=== PATIENT | female | born 1955 | race Caucasian/White ===

== ENCOUNTER → 2016-07-22 | Outpatient (CLI) | payer MEDICARE, MEDICAID ==
[~2016-07-22] MED LIST: ADVAIR 10028 PUFF/IN IN; ALBUTEROL2.5 MG/NEB IN; ASPIR-LOW81 MG PO; BAYER ASPIRIN C81 MG; BENEDRYL OR; CELEBREX 200MG200 MG PO; CHEWABLE ASPIRI81 MG PO; CIPROFLOXACIN500 MG PO; COL-RITE100 MG PO; DICLOFENAC 50MG50 MG PO; DIPHENHYDRAMINE25 MG PO; FLUTICASONE 50M16 GM; GABAPENTIN300 MG OR; HYDROCHLOROTH12.5 M1 PO; HYDROCODONE/ACE1 TA5 PO; HYDROXYZINE 25M25 MG PO; LEVAQUIN500 MG PO; LISINOPRIL40 MG PO; MEDROL 4MG. DOSE4 MG PO; METHOCARBAMOL750 MG PO; NAPROSYN 250MG250 MG PO; NEBULIZER MED; NEXIUM40 MG PO; NICODERM C21 MG/241 TD; OXYCODONE HYDRO10 M2 PO; PREDNISONE 10MG10 MG PO; PREDNISONE 20MG20 MG PO; PROAIR HFA0.09 MG/AC IH; RANITIDINE HCL150 MG PO; RHINOCORT0.032 MG/1 NS; ROBAXIN-750750 MG PO; SIMVASTATIN20 MG PO; SIMVASTATIN40 MG PO; SINGULAIR10 MG PO; SULFAMETHOXAZOL1 TA6 PO; SUMATRIPTAN SUC25 MG PO; TIZANIDINE HCL 44 MG NG; TRAMADOL 50MG T50 MG PO; TRAZODONE 50MG50 MG PO; TYLENOL W/CODEI1 TA2 PO; XARELTO20 MG PO; ZITHROMAX Z PA250 MG PO; ZOFRAN4 MG PO; ZOLOFT100 MG PO
[2016-07-22 12:27] LABS: HEMOGLOBIN 14.3 g/dL (12.2-16.2); LYMPH # 1.7 K/mm3 (0.7-4.5); LYMPH % 27.8 % (10-50.0)
[2016-07-22 13:42] LABS: BUN 11 mg/dL (7-18)
[2016-07-22 13:46] LABS: GFR (ESTIMATED) 102 ML/MIN (59-)
== END ==
LOC: LAB 12:15
PROVIDERS: Internal Medicine Adolescent Medicine
DX: M15.0 Primary generalized (osteo)arthritis (principal); Z86.711 Personal history of pulmonary embolism; Z79.899 Other long term (current) drug therapy; M85.871 Other specified disorders of bone density and structure, right ankle and foot; M85.872 Other specified disorders of bone density and structure, left ankle and foot

== ENCOUNTER 2017-02-27 14:54 | Inpatient (IN) | payer MEDICARE, MEDICAID ==
[~2017-02-27] VITALS: Ht 162.6 cm; Wt 69.5 kg
[2017-02-27 15:00] VITALS: BP 130/84
--- NOTE | 2017-02-27 15:57 | CONSULT NOTE ---
Pharmacokinetic Consult Date of consult: 02/27/17 Time of consult: 1556 Referring provider: DR. PERDUE Reason for consult: GENTAMICIN DOSING Allergies: Coded Allergies: morphine (Severe, CHEST PAIN 09/17/15) Penicillins (I-HIVES 11/24/16) iodine (I-HIVES 11/24/16) Home Medications: Active Scripts Gabapentin (Gabapentin 300MG) 300 MG OR TID #90 CAPSULE Ref 3 Prov: 03/17/16 ONDANSETRON HCL (Zofran 4MG Tab) 4 MG PO Q6HP PRN NAUSEA AND VOMITING #12 TAB Prov: 07/10/16 Reported Medications Montelukast Sodium (Singulair) 10 MG PO QHS Albuterol Sulfate (Proair Hfa) 2 PUFFS IH QID Lisinopril (Lisinopril 40MG) 40 MG PO DAILY SERTRALINE HYDROCHLORIDE (Zoloft 100MG) 200 MG PO QHS Simvastatin (Simvastatin 40MG Tab) 40 MG PO QHS TRAZODONE HCL (Trazodone HCl) 50 MG PO QHS Esomeprazole Magnesium (Nexium 40MG Cap) 40 MG PO DAILY TIZANIDINE HCL (Tizanidine Hcl 4 Mg Tablet) 4 MG NG TIDP PRN MUSCLE SPASMS Ranitidine Hcl (Ranitidine 150MG) 150 MG PO BID SALMETEROL 50/FLUTICASONE 100 (Advair 100-50 Diskus) 1 PUFF IN BID DICLOFENAC SODIUM (Diclofenac 50MG) 75 MG PO BID FLUTICASONE PROPIONATE (Fluticasone 50MCG Nasal [place]) 2 SPRAY NA DAILY Tramadol Hcl (Tramadol 50MG) 50 MG PO TID #90 Height (feet): 5 Height (inches): 4.00 Medical History: CAD? No Angina: Yes CO: No Hypertension? Yes Hyperlipidemia? Yes CHF? No DVT? No PE? No COPD? Yes Asthma? Yes Anemia? No GERD? No Gastric ulcers? No GI Bleed? No Hernia? No Thyroid Problems? No Hypothyroidism? No CVA? Yes Seizures? No Diabetes? No Renal Insuffiency? No UTI? No Stones? No BPH? No GB Disease: Yes Nephritic Syndrome? No Asplenia? No Hepatitis? No Sickle Cell Disease? No Arthritis? No Migraines? Yes Cataracts? No Glaucoma? No MRSA? No HIV? No TB? No Anxiety? No Depression? Yes Cancer? No More? Yes Additional hx: 02 DEPENDENT Labs: Microbiology 02/27 UNK BLOOD: Anaerobic Blood Culture - ORD 02/27 UNK BLOOD: Aerobic Blood Culture - ORD 02/27 UNK BLOOD: Anaerobic Blood Culture - ORD 02/27 UNK BLOOD: Aerobic Blood Culture - ORD Plan: BASED ON PATIENT'S FACTORS, RECOMMEND STARTING WITH GENTAMICIN 240 MG Q48H AT THIS TIME. WILL OBTAIN 4 AND 12 HOUR LEVELS TO DETERMINE RENAL CLEARANCE OF GENTAMICIN. PHARMACY WILL FOLLOW DAILY AND ADJUST APPROPRIATE. NANCY CALDERA,PHARMD at [phone]
[2017-02-27] MEDS ORDERED: DOXYCYCLINE HY100 M3 PO (16:05)
[2017-02-27] MEDS ORDERED: PREDNISONE 20MG20 MG PO (16:10)
[2017-02-27] MEDS ORDERED: PANTOPRAZOLE SO40 MG PO (16:11)
[2017-02-27] MEDS ORDERED: SUMATRIPTAN SUC25 MG PO (16:15)
--- NOTE | 2017-02-27 16:15 | RADIOLOGY REPORT PS360 ---
CHEST(2 VIEWS-NOT PORTABLE) HISTORY: Cough and congestion R/O PNEUMONIA ORDERING PHYSICIAN: Levon Harp MD PATIENT AGE: 61 years COMPARISON: Ex 516 FINDINGS: The heart size is unremarkable. COPD with hyperinflation and attenuation of the peripheral pulmonary vessels. There is a chronic parenchymal opacity in the right upper lobe overlying the third rib probably due to an area of scarring. Patchy density is present in the right CP angle suggesting atelectasis or infiltrate with blunting of the right CP angle consistent with small right effusion. There is moderate lower thoracic scoliosis convex left. IMPRESSION: COPD with right basilar infiltrate with small right effusion with chronic change
[2017-02-27 16:22] VITALS: BP 136/94
--- NOTE | 2017-02-27 17:22 | HISTORY AND PHYSICAL REPORT ---
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 Slightly improved with oral antibiotics and prednisone therapy but this afternoon came back with ongoing shortness of air, congestion, no improvement over baseline and was admitted to hospital for inpatient antibiotics, pulmonary toilet and intravenous therapy. Past medical history: Family HX Diabetes Yes CAD Yes Hypertension Yes Hyperlipidemia Yes Cancer No TB No Immunization HX DT/Tetanus Unknown Flu Refused Pneumonia Received In Past General CAD? No Angina: Yes NC: No Hypertension? Yes Hyperlipidemia? Yes CHF? No DVT? No PE? No COPD? Yes Asthma? Yes Anemia? No GERD? No Gastric ulcers? No GI Bleed? No Hernia? No Thyroid Problems? No Hypothyroidism? No CVA? Yes Seizures? No Diabetes? No Renal Insuffiency? No UTI? No Stones? No BPH? No GB Disease: Yes Nephritic Syndrome? No Asplenia? No Hepatitis? No Sickle Cell Disease? No Arthritis? No Migraines? Yes Cataracts? No Glaucoma? No MRSA? No HIV? No TB? No Anxiety? No Depression? Yes Cancer? No More? Yes Additional hx: 02 DEPENDENT Past Surgical HX Previous Surgery?Y CHOLECYSTECTOMY FEET SURGERY CYSTS REMOVED L BREAST GALLSTONES NECK SURGERY KNOT ON NECK Current home meds: Active Scripts Gabapentin (Gabapentin 300MG) 300 MG OR TID #90 CAPSULE Ref 3 Prov: 03/17/16 Reported Medications DOXYCYCLINE HYCLATE (Doxycycline Hyclate) 100 MG PO BID Prednisone (Prednisone 20MG) 20 MG PO ONCE Pantoprazole Sodium (Pantoprazole 40MG) 40 MG PO DAILY Sumatriptan Succinate (Sumatriptan 25MG Tab) 100 MG PO PRN PRN MIGRAINE Montelukast Sodium (Singulair) 10 MG PO QHS Albuterol Sulfate (Proair Hfa) 2 PUFFS IH QID Lisinopril (Lisinopril 40MG) 40 MG PO DAILY SERTRALINE HYDROCHLORIDE (Zoloft 100MG) 200 MG PO QHS TRAZODONE HCL (Trazodone HCl) 50 MG PO QHS TIZANIDINE HCL (Tizanidine Hcl 4 Mg Tablet) 4 MG NG TIDP PRN MUSCLE SPASMS Ranitidine Hcl (Ranitidine 150MG) 150 MG PO BID SALMETEROL 50/FLUTICASONE 100 (Advair 100-50 Diskus) 1 PUFF IN BID FLUTICASONE PROPIONATE (Fluticasone 50MCG Nasal [place]) 2 SPRAY NA DAILY Tramadol Hcl (Tramadol 50MG) 50 MG PO TID #90 Social Hx: Smoking HX Packs/day 1 1/2 - 2 PACKS Alcohol Alcohol: No Hx of Drug Use Drug Use? No Patien't marital status is single Patient's support system is excellent Review of systems: Constitutional fever, malaise, weakness. Respiratory shortness of breath, SOB with excertion, SOB at rest, wheezing. No: stridor. Cardiovascular No no symptoms reported Gastrointestinal/Abdominal No diarrhea, No difficulty swallowing Genitourinary No: no symptoms reported. Musculoskeletal No: no symptoms reported. Neurological No: see HPI. Exam: Lab data for last 24 hours: Microbiology 02/27 1705 BLOOD: Anaerobic Blood Culture - RECD 02/27 1705 BLOOD: Aerobic Blood Culture - RECD 02/27 1705 BLOOD: Anaerobic Blood Culture - RECD 02/27 1705 BLOOD: Aerobic Blood Culture - RECD Admission vital signs: 1ST Vital Signs Result Date Time Pulse Ox 91 02/27 162 B/P 136/94 02/27 162 O2 Delivery OXYGEN 02/27 1622 Temp 97.8 02/27 1622 Pulse 108 02/27 162 Resp 22 02/27 1622 Additional information: Patient is short of breath at baseline. In her wheelchair. Lungs have crackles and rhonchi on both sides, worse in the right base. Left side clear. Abdomen is soft and nontender. 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 Plan: Problem List 1. COPD exacerbation 2. Lobar pneumonia Plan: Admit to hospital. History of Pseudomonas. Cover for this organism. Pulmonary toilet. Follow closely. at 1728
[2017-02-27 17:26] LABS: HEMOGLOBIN 13.4 g/dL (12.2-16.2); LYMPH # 0.8 K/mm3 (0.7-4.5); LYMPH % 7.2 % (10-50.0)
[2017-02-27 18:14] LABS: NEUTROPHILS 90 % (42-76)
[2017-02-27 20:06] VITALS: BP 118/82
[2017-02-27 20:13] VITALS: BP 118/82
[2017-02-28 03:42] VITALS: BP 138/93
[2017-02-28 08:00] VITALS: BP 169/95
--- NOTE | 2017-02-28 13:22 | PHARMACY CLINIC NOTE ---
Patient Demographics Patient Demographics Admission date: 02/27/17 Date: 02/28/17 Time: 1322 Allergies Coded Allergies: morphine (Severe, CHEST PAIN 09/17/15) Penicillins (I-HIVES 11/24/16) iodine (I-HIVES 11/24/16) HEIGHT- FT: 5 IN: 4.00 K.911 VTE General Information Labs: Laboratory Tests 02/27 1705 Hematology Hgb (12.2 - 16.2 g/dL) 13.4 Hct (37.0 - 47.0 %) 43.1 Plt Count (142 - 424 K/mm3) 533 H Disclaimer The following section includes nursing documentation that has been pulled in for pharmacy review. Patient's VTE score: 1 Patient's VTE Risk: VERY LOW RISK Clinical trial participant? No VTE prophylaxis NQF [id number] VTE prophylaxis ordered? Yes Type of prophylaxis/treatment: KACEY at 1322
--- NOTE | 2017-02-28 13:28 | ACUTE CARE PROGRESS NOTE (QUA) ---
Progress Notes Subjective Date 02/28/17 Time 1327 Note Patient slept well. States she still feels short of air with some coughing. Lungs still with rhonchi and crackles in the RIGHT lower lung field. Abdomen soft, left-sided fairly clear. Other exam unchanged from admission. Objective Findings Last VS-Temp:97.8 B/P:138/93 Pulse:78 Resp:20 SaO2:98 OXYGEN Last weight lbs:154 oz:2 K.911 Method:Bed Scales Assessment/Plan Problem List 1. COPD exacerbation 2. Lobar pneumonia Patient condition Improving Plan: continue current care, await culture results. Continue current antibiotic therapy This inpt stay is expected to cross 2 MNs from start of care Yes at 1321
--- NOTE | 2017-02-28 15:51 | CONSULT NOTE ---
Pharmacokinetic Consult Date of consult: 02/28/17 Time of consult: 8423 Referring provider: DR. PERDUE Reason for consult: GENTAMICIN LEVELS AND DOSE CHANGE Allergies: Coded Allergies: morphine (Severe, CHEST PAIN 09/17/15) Penicillins (I-HIVES 11/24/16) iodine (I-HIVES 11/24/16) Home Medications: Active Scripts Gabapentin (Gabapentin 300MG) 300 MG OR TID #90 CAPSULE Ref 3 Prov: 03/17/16 Reported Medications DOXYCYCLINE HYCLATE (Doxycycline Hyclate) 100 MG PO BID Prednisone (Prednisone 20MG) 20 MG PO ONCE Pantoprazole Sodium (Pantoprazole 40MG) 40 MG PO DAILY Sumatriptan Succinate (Sumatriptan 25MG Tab) 100 MG PO PRN PRN MIGRAINE Montelukast Sodium (Singulair) 10 MG PO QHS Albuterol Sulfate (Proair Hfa) 2 PUFFS IH QID Lisinopril (Lisinopril 40MG) 40 MG PO DAILY SERTRALINE HYDROCHLORIDE (Zoloft 100MG) 200 MG PO QHS TRAZODONE HCL (Trazodone HCl) 50 MG PO QHS TIZANIDINE HCL (Tizanidine Hcl 4 Mg Tablet) 4 MG NG TIDP PRN MUSCLE SPASMS Ranitidine Hcl (Ranitidine 150MG) 150 MG PO BID SALMETEROL 50/FLUTICASONE 100 (Advair 100-50 Diskus) 1 PUFF IN BID FLUTICASONE PROPIONATE (Fluticasone 50MCG Nasal [place]) 2 SPRAY NA DAILY Tramadol Hcl (Tramadol 50MG) 50 MG PO TID #90 Height (feet): 5 Height (inches): 4.00 Medical History: CAD? Yes Angina: Yes [place]: No Hypertension? Yes Hyperlipidemia? Yes CHF? No DVT? No PE? No COPD? Yes Asthma? Yes Anemia? No GERD? No Gastric ulcers? No GI Bleed? No Hernia? No Thyroid Problems? No Hypothyroidism? No CVA? Yes Seizures? No Diabetes? Yes Insulin Dependent: No Insulin Pump: No Home FSBS? No Renal Insuffiency? No UTI? No Stones? No BPH? No GB Disease: Yes Nephritic Syndrome? No Asplenia? No Hepatitis? No Sickle Cell Disease? No Arthritis? No Migraines? Yes Cataracts? No Glaucoma? No MRSA? No HIV? No TB? No Anxiety? No Depression? Yes Cancer? No More? Yes Additional hx: 02 DEPENDENT Labs: Laboratory Tests 02/28/17 0940: Random Gentamicin 2.2 L 02/28/17 0210: Random Gentamicin 5.6 02/27/17 170: Sodium 141, Potassium 3.1 L, Chloride 104, Carbon Dioxide 34 H, BUN 16, Creatinine 0.6, Estimated Creat Clear 111, Estimated GFR (MDRD) 102, Glucose 91, Calcium 9.2, Total Bilirubin 0.1 L, AST 12 L, ALT 15, Alkaline Phosphatase 80, Total Protein 7.3, Albumin 2.7 L, Globulin 4.6 H, Albumin/Globulin Ratio 0.6 L, WBC 11.3 H, RBC 4.69, Hgb 13.4, Hct 43.1, MCV 91.9, RDW 13.6, Plt Count 533 H, MPV 7.1 L, Gran % 87.9 H, Gran # 9.9 H, Total Counted 100, Lymphocytes % 7.2 L, Monocytes % 4.3, Eosinophils % 0.3, Basophils % 0.3, Neutrophils 90 H, Lymphocytes (Manual) 8 L, Lymphocytes # 0.8, Monocytes (Manual) 1 L, Monocytes # 0.5, Eosinophils # 0.0, Basophils # 0.0, Basophils # (Manual) 1, Platelet Estimate SLIGHT INCREASE, PUBS MCHC 31.1 L, MCH 28.6, Mycoplasma pneumon IgM NON-REACTIVE Microbiology 02/28 510 SPUTUM: Sputum Culture - COMP 02/28 510 SPUTUM: Gram Stain - COMP 02/27 2035 SPUTUM: Sputum Culture - COMP 02/27 2035 SPUTUM: Gram Stain - COMP 02/27 1705 BLOOD: Anaerobic Blood Culture - RECD 02/27 1705 BLOOD: Aerobic Blood Culture - RECD 02/27 1705 BLOOD: Anaerobic Blood Culture - RECD 02/27 1705 BLOOD: Aerobic Blood Culture - RECD Plan: BASED ON PATIENT'S GENTAMICIN LEVELS OF 5.6 MCG/ML AND 2.2 MCG/ML AT 5 AND 12 HOURS POST INFUSION, RESPECTIVELY, RECOMMEND CHANGING GENTAMICIN DOSE TO 280 MG Q24H STARTING TONIGHT AT 2100. PHARMACY WILL FOLLOW DAILY AND ADJUST APPROPRIATE. NANCY CALDERA, PHARMD at [phone]
[2017-02-28 16:00] VITALS: BP 135/87
[2017-02-28 20:01] VITALS: BP 111/70
--- OUTSIDE RECORDS SUMMARY | 2017-02-28 20:32 | External Medical Summary Rpt | CCD ---
Author Author , LUCILLE Organization LUCILLE Address Unknown Phone [email or web address] Care Team Providers Care Epic Cup[employer] Specialists Name Role Phone Jose Pavon III, MD, Jose Richey III, MD Purpose Continuity of Care Document - 12-11-2012 through 2016 Problems Code Diagnosis DOS Provider Status 305.1 305.1 12-11-2012 [place] TOBACCO USE [facility] DISORDER [facility] 401.9 401.9 12-11-2012 [place] HYPERTENSIO [facility] NOS Hospital 413.9 413.9 12-11-2012 [place] ANGINA [facility] PECTORIS [facility] NEC/NOS 493.90 493.90 12-11-2012 [place] ASTHMA, [facility] UNSPECIFIED Hospital [id number] 496 CHR 12-11-2012 [place] AIRWAY [facility] OBSTRUCT [facility] NEC 682.1 682.1 12-11-2012 [place] CELLULITIS [facility] OF NECK [facility] V14.0 V14.0 12-11-2012 [place] HX-PENICILL [facility] IN ALLERGY Hospital E55.9 VITAMIN D DEFICIENCY, UNSPECIFIED I10 ESSENTIAL (PRIMARY) HYPERTENSIO N J44.1 CHRONIC OBSTRUCTIVE PULMONARY DISEASE W (ACUTE) EXACERBATIO N J44.9 CHRONIC OBSTRUCTIVE PULMONARY DISEASE, UNSPECIFIED J80 ACUTE RESPIRATORY DISTRESS SYNDROME M54.5 LOW BACK PAIN R06.00 DYSPNEA, UNSPECIFIED S90.31XA CONTUSION OF RIGHT FOOT, INITIAL ENCOUNTER Z86.711 PERSONAL HISTORY OF PULMONARY EMBOLISM Allergies, Adverse Reactions, Alerts Type Drug Allergy Adverse Reaction to Substance Substance Reaction Severity Penicillin Unknown Unknown Morphine CHEST PAIN Severe Iodine Unknown Unknown Vital Signs 12-11-2012 14:33 Name Value Interpretat Reference Comment ion Range BP 84 mm[Hg] Diastolic BP Systolic 118 mm[Hg] Heart 62 /min Rate/Pulse O2% 94 % Respiratory 20 /min Rate 12-11-2012 14:00 Name Value Interpretat Reference Comment ion Range Heart 100 /min Rate/Pulse Respiratory 20 /min Rate 12-11-2012 13:54 Name Value Interpretat Reference Comment ion Range O2% 82 % Results Labs Lab Lab Date Result Refere Interp Status Commen Order Detail nces retati t Range on Drugs identified in Urine by Screen method (02-09-2017 13:45) Ampheta NEGATIV <1000 complet mine 017 E ed [Presen 13:45 ce] in Urine by Screen method 11-Hydr NEGATIV <50 complet oxy 017 E ed delta-9 13:45 tetrahy drocann abinol [Presen ce] in Unspeci fied specime n Encounters Encounter Start End Date Code Location Performer Type Date Emergency REYNALDO Richey (ER) 3 14:00 3 14:33 [facility] Jose Serrano
--- OUTSIDE RECORDS SUMMARY | 2017-02-28 20:32 | External Medical Summary Rpt | CCD ---
Demographics Preferred Language Belarusian Marital Status Unknown Scientology Affiliation Unknown Race Unknown Ethnic Group Unknown Author Author , LUCILLE ADKINS Address Unknown Phone Immunization No patient found.
--- OUTSIDE RECORDS SUMMARY | 2017-02-28 20:32 | External Medical Summary Rpt | CCD ---
Author Author , HEIDI ADKINS Address Unknown Phone [email or web address] Purpose Continuity of Care Document - through 2016
--- OUTSIDE RECORDS SUMMARY | 2017-02-28 20:32 | External Medical Summary Rpt ---
Author Author [employer], [employer] Organization [employer] Address Unknown Phone Unavailable Results Opiates and Oxycodone(GC/MS),U Observa Value Referen Units Interpr Notes Date tion ce etation Range Oxycodo Negativ Cutoff= No No Test Sep 25 ne/Oxym e 100 informa informa include 2017 orph tion in tion in s 1:45 PM source source Oxycodo data data ne and [employer] honePer formed at: [facility] [id number] [place], [place] [id number]Lab Directo r: Tony Trent MD, Phone: [phone] Opiates Negativ Cutoff= No No Opiate Sep 25 e 100 informa informa test 2017 tion in tion in include 1:45 PM source source s data data Codeine , Morphin e, Hydromo rphone, Hydroco done. Drugs identified in Urine by Screen method Observa Value Referen Units Interpr Notes Date tion ce etation Range Positive urine drug screen samples are stored for 7 days. Contact the Lab if confirmation of positives is needed. Ampheta NEGATIV <1000 ng/mL No No Sep 25 mine E informa informa 2017 [Presen tion in tion in 1:45 PM ce] in source source Urine data data by Screen method Barbitura <200 ng/mL No No Sep 25 marco informati informati 2017 1:45 [Mass/vol on in on in PM ume] in source source Urine by data data Screen method Benzodiaz 200 ng/mL ng/mL No No Sep 25 epines informati informati 2017 1:45 [Mass/vol on in on in PM ume] in source source Serum or data data Plasma by Screen method Cocaine <300 ng/g No No Sep 25 [Mass/vol informati informati 2017 1:45 ume] in on in on in PM Unspecifi source source ed data data specimen Methadone <300 ng/mL No No Sep 25 informati informati 2017 1:45 [Mass/vol on in on in PM ume] in source source Unspecifi data data ed specimen Opiates <300 ng/mL No No Sep 25 [Mass/vol informati informati 2017 1:45 ume] in on in on in PM Unspecifi source source ed data data specimen Phencycli <25 ng/mL No No Sep 25 dine informati informati 2017 1:45 [Mass/vol on in on in PM ume] in source source Unspecifi data data ed specimen 11-Hydr NEGATIV <50 ng/mL No No Sep 25 oxy E informa informa 2017 delta-9 tion in tion in 1:45 PM source source tetrahy data data drocann abinol [Presen ce] in Unspeci fied specime n
--- OUTSIDE RECORDS SUMMARY | 2017-02-28 20:32 | External Medical Summary Rpt | CCD ---
Author Author , LUCILLE Organization LUCILLE Address Unknown [employer] Care Team Providers Care Ordnance Engineering Technician Name Role Phone Jose Pavon III, MD, Jose Richey III, MD Purpose Continuity of Care Document - 12-11-2012 through 2016 Problems Code Diagnosis DOS Provider Status 305.1 305.1 12-11-2012 [place] TOBACCO USE [facility] DISORDER [facility] 401.9 401.9 12-11-2012 [place] HYPERTENSIO [facility] NOS Hospital 413.9 413.9 12-11-2012 [place] ANGINA [facility] PECTORIS [facility] NEC/NOS 493.90 493.90 12-11-2012 [place] ASTHMA, [facility] UNSPECIFIED Hospital 496 496 CHR 12-11-2012 [place] AIRWAY [facility] OBSTRUCT [facility] NEC 682.1 682.1 12-11-2012 [place] CELLULITIS [facility] OF NECK [facility] V14.0 V14.0 12-11-2012 [place] HX-PENICILL [facility] IN ALLERGY Hospital E55.9 VITAMIN D DEFICIENCY, [...] REYNALDO Richey (ER) 3 14:00 3 14:33 [facility] Jose Serrano
--- OUTSIDE RECORDS SUMMARY | 2017-02-28 20:32 | External Medical Summary Rpt | CCD ---
Author Author , HEIDI ADKINS Address Unknown Phone Purpose Continuity of Care Document - through 2016
--- OUTSIDE RECORDS SUMMARY | 2017-02-28 20:32 | External Medical Summary Rpt | CCD ---
Demographics Preferred Language Belarusian Marital Status Unknown Confucianist Affiliation Unknown Race Unknown Ethnic Group Unknown Author Author , LUCILLE ADKINS Address Unknown Phone Immunization No patient found.
--- OUTSIDE RECORDS SUMMARY | 2017-02-28 20:32 | External Medical Summary Rpt ---
[...] data ne and [employer] honePer formed at: [facility] [id number] [place], [place] [id number]Lab Directo r: Tony Trent MD, Phone: [phone] Opiates Negativ Cutoff= No No Opiate Sep [...]
[2017-02-28 21:08] VITALS: BP 111/70
[2017-03-01 04:08] VITALS: BP 110/70
--- NOTE | 2017-03-01 07:58 | ACUTE CARE PROGRESS NOTE (QUA) ---
Progress Notes Subjective Date 03/01/17 Time 0756 Note Overall patient feels somewhat better. Has defervesced. Continues to have some mild shortness of air but improved. Lungs continue to show crackles in the RIGHT lower lung field. Abdomen is soft, heart rate regular. Objective Findings Laboratory Tests 02/28/17 0940: Random Gentamicin 2.2 L Microbiology 03/01 38 SPUTUM: Sputum Culture - RES 03/01 38 SPUTUM: Gram Stain - RES 03/01 30 SPUTUM: Organism ID (Sequencing 2)(RAMON) - CAN Cancelled: REORDERED C/S Last VS-Temp:98.6 B/P:110/70 Pulse:84 Resp:18 SaO2:95 OXYGEN Last weight lbs:156 oz:5 K.902 Method:Bed Scales Assessment/Plan Problem List 1. COPD exacerbation 2. Lobar pneumonia 3. GRAM-NEGATIVE SEPSIS, UNSPECIFIED Patient condition Improving Plan: continue current care This inpt stay is expected to cross 2 MNs from start of care Yes Comments: Gram-negative rods in blood noted. Continue current antibiotics given empiric improvement. Await culture or PCR results. at 0757
[2017-03-01 08:30] VITALS: BP 131/80
[2017-03-01 16:27] VITALS: BP 124/90
[2017-03-01 20:10] VITALS: BP 120/67
[2017-03-01 21:05] LABS: GENTAMYCIN TROUGH 0.8 ug/ml (0-2.0)
[2017-03-01 21:15] VITALS: BP 120/67
[2017-03-02 03:59] VITALS: BP 102/61
--- NOTE | 2017-03-02 07:26 | ACUTE CARE PROGRESS NOTE (QUA) ---
Progress Notes Subjective Date 03/02/17 Time 0725 Note Patient feels somewhat better, has been breathing better. Good oral intake. Has not been out of bed. Lungs have rhonchi, good air movement, heart rate regular. Abdomen soft. Objective Findings Last VS-Temp:98.4 B/P:102/61 Pulse:75 Resp:16 SaO2:96 OXYGEN Last weight lbs:156 oz:5 K.902 Method:Bed Scales Assessment/Plan Problem List 1. COPD exacerbation 2. Lobar pneumonia 3. GRAM-NEGATIVE SEPSIS, UNSPECIFIED Patient condition Improving Plan: continue current care, await final resolution of blood culture issues and sputum culture. Hopefully discharge tomorrow. I am unsure of the veracity of the blood culture results with PCR findings but no actual culture growth. This inpt stay is expected to cross 2 MNs from start of care Yes at 0760
[2017-03-02 08:00] VITALS: BP 113/61
--- NOTE | 2017-03-02 08:11 | ACUTE CARE PROGRESS NOTE (QUA) ---
Progress Notes Subjective Date 03/02/17 Time 0810 Assessment/Plan Problem List 1. COPD exacerbation 2. Lobar pneumonia 3. GRAM-NEGATIVE SEPSIS, UNSPECIFIED This inpt stay is expected to cross 2 MNs from start of care Yes Antibiotic Stewardship (2) Current Culture Results Microbiology 03/01 38 SPUTUM: Sputum Culture - RES 03/01 38 SPUTUM: Gram Stain - RES 03/01 30 SPUTUM: Organism ID (Sequencing 2)(RAMON) - CAN Cancelled: REORDERED C/S 02/27 1705 BLOOD: Anaerobic Blood Culture - RES 02/27 1705 BLOOD: Aerobic Blood Culture - RES Infxn that will respond? Yes (PATIENT REMAINING AFEBRILE) Right drug,dose,and route? Yes More targeted antbx? No at 0811
--- NOTE | 2017-03-02 09:01 | CONSULT NOTE ---
Pharmacokinetic Consult Date of consult: 03/02/17 Time of consult: 857 Referring provider: DR. PERDUE Reason for consult: GENTAMICIN TROUGH LEVEL Allergies: Coded Allergies: morphine (Severe, CHEST PAIN 09/17/15) Penicillins (I-HIVES 11/24/16) iodine (I-HIVES 11/24/16) Home Medications: Active Scripts Gabapentin (Gabapentin 300MG) 300 MG OR TID #90 CAPSULE Ref 3 Prov: 03/17/16 Reported Medications DOXYCYCLINE HYCLATE (Doxycycline Hyclate) 100 MG PO BID Prednisone (Prednisone 20MG) 20 MG PO ONCE Pantoprazole Sodium (Pantoprazole 40MG) 40 MG PO DAILY Sumatriptan Succinate (Sumatriptan 25MG Tab) 100 MG PO PRN PRN MIGRAINE Montelukast Sodium (Singulair) 10 MG PO QHS Albuterol Sulfate (Proair Hfa) 2 PUFFS IH QID Lisinopril (Lisinopril 40MG) 40 MG PO DAILY SERTRALINE HYDROCHLORIDE (Zoloft 100MG) 200 MG PO QHS TRAZODONE HCL (Trazodone HCl) 50 MG PO QHS TIZANIDINE HCL (Tizanidine Hcl 4 Mg Tablet) 4 MG NG TIDP PRN MUSCLE SPASMS Ranitidine Hcl (Ranitidine 150MG) 150 MG PO BID SALMETEROL 50/FLUTICASONE 100 (Advair 100-50 Diskus) 1 PUFF IN BID FLUTICASONE PROPIONATE (Fluticasone 50MCG Nasal [place]) 2 SPRAY NA DAILY Tramadol Hcl (Tramadol 50MG) 50 MG PO TID #90 Height (feet): 5 Height (inches): 4.00 Medical History: CAD? Yes Angina: Yes [place]: No Hypertension? Yes Hyperlipidemia? Yes CHF? No DVT? No PE? No COPD? Yes Asthma? Yes Anemia? No GERD? No Gastric ulcers? No GI Bleed? No Hernia? No Thyroid Problems? No Hypothyroidism? No CVA? Yes Seizures? No Diabetes? Yes Insulin Dependent: No Insulin Pump: No Home FSBS? No Renal Insuffiency? No UTI? No Stones? No BPH? No GB Disease: Yes Nephritic Syndrome? No Asplenia? No Hepatitis? No Sickle Cell Disease? No Arthritis? No Migraines? Yes Cataracts? No Glaucoma? No MRSA? No HIV? No TB? No Anxiety? No Depression? Yes Cancer? No More? Yes Additional hx: 02 DEPENDENT Labs: Laboratory Tests 03/01/17 2030: Creatinine 0.7, Estimated Creat Clear 97, Estimated GFR (MDRD) 86, Gentamicin Trough 0.8 Problem List: 1. GRAM-NEGATIVE SEPSIS, UNSPECIFIED Plan: BASED ON GENTAMICIN TROUGH LEVEL LAST NIGHT, RECOMMEND CONTINUING GENTAMICIN 280 MG IV Q24H. PHARMACY WILL CONTINUE TO MONITOR DAILY AND ADJUST APPROPRIATE. at 0901
[2017-03-02 10:22] VITALS: BP 113/61
[2017-03-02 16:00] VITALS: BP 114/56
[2017-03-02 19:50] VITALS: BP 116/66
[2017-03-03 00:20] VITALS: BP 120/68
[2017-03-03 04:15] VITALS: BP 126/67
[2017-03-03] MEDS ORDERED: OMNICEF 300 MG300 MG PO (07:30)
[2017-03-03] MEDS ORDERED: ZITHROMAX Z-PA250 M2 PO (07:30)
--- NOTE | 2017-03-03 07:34 | DISCHARGE SUMMARY STANDARD ---
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 Slightly improved with oral antibiotics and prednisone therapy but this afternoon came back with ongoing shortness of air, congestion, no improvement over baseline and was admitted to hospital for inpatient antibiotics, pulmonary toilet and intravenous therapy. Hospital Course Hospital Course: Patient was admitted, found to have RIGHT lower lobe pneumonia with a very mild pleural effusion. She responded very nicely to antibiotics. Her white count was normal. She defervesced very quickly and began to normalize vis--vis respiratory status. Interestingly although sputum cultures were nondiagnostic and blood cultures show no growth there is a "PCR positive for a short gram-negative paco" in one of her blood cultures but sensitivities are pending. I'm honestly not sure what to make of this given the fact her culture showed no growth and I do not believe this needs treated at this point until further information is available. She is improved and is back to her baseline this morning. Good air movement. Minimal rhonchi in the RIGHT lung but much better. Heart rate regular. Abdomen is soft. She'll be discharged home with Omnicef and azithromycin therapy and short-term follow-up. Discharge diagnoses Problem List 1. COPD exacerbation 2. Lobar pneumonia 3. GRAM-NEGATIVE SEPSIS, UNSPECIFIED Medications Medications: Discharge meds are as noted. Follow up Follow up in office in: 6 DAYS with: Levon Harp MD at 0776
[2017-03-03 08:00] VITALS: BP 119/70
[2017-03-03 10:32] VITALS: BP 119/70
== END 2017-03-03 10:30 | disposition home or self-care (01) | DRG 190 ==
LOC: 2ND 14:54
PROVIDERS: Internal Medicine Adolescent Medicine
DX: J44.0 Chronic obstructive pulmonary disease with (acute) lower respiratory infection (principal); J18.9 Pneumonia, unspecified organism; A41.50 Gram-negative sepsis, unspecified; Z99.81 Dependence on supplemental oxygen; G60.0 Hereditary motor and sensory neuropathy; J44.1 Chronic obstructive pulmonary disease with (acute) exacerbation; Z99.3 Dependence on wheelchair; Z72.0 Tobacco use; I10 Essential (primary) hypertension
CPT/HCPCS: J0456; Q2038

== ENCOUNTER 2017-04-17 09:47 | Day surgery (SDC) | payer MEDICARE, MEDICAID ==
[~2017-04-17] VITALS: Ht 162.6 cm; Wt 77.1 kg
[~2017-04-17 09:47] MED LIST changes: +DOXYCYCLINE HY100 M3 PO; +OMNICEF 300 MG300 MG PO; +PANTOPRAZOLE SO40 MG PO; +ZITHROMAX Z-PA250 M2 PO
[2017-04-17 10:21] VITALS: BP 115/88
[2017-04-17 10:42] VITALS: BP 115/88
[2017-04-17 10:45] VITALS: BP 130/88
[2017-04-17 10:56] VITALS: BP 136/80
--- NOTE | 2017-04-17 10:57 | Procedure Note ---
Procedure detail Date of procedure: 04/17/17 Anesthesiologist: Blair Oliveira Complications: None Pre-procedure diagnosis: Degenerative disc disease lumbar spine multiple levels. Lumbar radiculopathy symptoms. Post-procedure diagnosis: Same. Indications for procedure: Very pleasant 61-year-old white female with severe chronic obstructive pulmonary disease comes to the procedure clinic today for a lumbar epidural steroid injection at the L4-5 level. Patient is unable to lie prone without severe dyspnea. Her lumbar epidural steroid injection was given the sitting position. The L4-5 level. She taught procedure without difficulty. She's had medial branch blocks lumbar spine multiple levels in the past with significant improvement terms her lumbar back pain. However, she complains of bilateral hip and leg radicular symptoms. Procedure detail: Procedure: Lumbar epidural steroid injection under fluoroscopy Informed consent was obtained and the risks and benefits of the procedure were explained to the patient. The patient was taken to the procedure room and noninvasive monitors placed, including noninvasive blood pressure cuff and pulse oximeter. The back was prepped using Betadine as a cleansing solution and the L4 -L5 interspace was palpated. Skin and subcutaneous tissues were anesthetized using lidocaine 1.5% and a 25-gauge needle. After this, an 18-gauge Touhy epidural needle was placed into the L4-L5 interspace and advanced using fluoroscopic guidance and loss of resistance to air until the epidural space was encountered. After confirmation of needle placement in the epidural space, with dye, a solution containing lidocaine 1.5%, 4 mL and Depo-Medrol 80 mg were incrementally injected into the lumbar epidural space. The patient tolerated the procedure well with no complications. The patient was observed in the Pain Clinic and then discharged home neurologically intact. Plan and disposition: Patient was evaluated 10 minutes post procedure. She's doing very well. She'll return to see us for further evaluation. at 2315
== END 2017-04-17 10:50 | disposition home or self-care (01) ==
LOC: PM 09:47
PROC: 3E0R3BZ Introduction of Anesthetic Agent into Spinal Canal, Percutaneous Approach (ICD-10-PCS; principal; 2017-04-17)
PROC: 3E0R33Z Introduction of Anti-inflammatory into Spinal Canal, Percutaneous Approach (ICD-10-PCS; 2017-04-17)
PROC: B01B1ZZ Fluoroscopy of Spinal Cord using Low Osmolar Contrast (ICD-10-PCS; 2017-04-17)
DX: M51.16 Intervertebral disc disorders with radiculopathy, lumbar region (principal)
CPT/HCPCS: J1040